=== PATIENT | male | born 2000 | race Two or more races ===

== ENCOUNTER 2021-03-18 09:22 | Emergency (ER) | payer OTHER ==
[~2021-03-18] VITALS: Ht 182.9 cm; Wt 77.1 kg
== END 2021-03-18 14:07 | disposition home or self-care (01) ==
LOC: ER 09:22
DX: M79.10 Myalgia, unspecified site (principal); R51.9 Headache, unspecified; R50.9 Fever, unspecified; R53.81 Other malaise